=== PATIENT | female | born 1965 | race Caucasian/White ===

== ENCOUNTER 2024-08-07 14:07 | Emergency (ER) | payer OTHER ==
[~2024-08-07] VITALS: Ht 170.2 cm; Wt 117.0 kg
[2024-08-07 14:29] VITALS: BP_SYST 177; PULSE 90; RESP 18; TEMP 97.9; O2SAT 94
[2024-08-07] MEDS: IBUPROFEN 800 MG TABLET PO ONE (15:28)
[2024-08-07] MEDS: HYDROcodone/ACETAMIN 10-325 MG TAB PO ONE (15:29)
[2024-08-07] MEDS ORDERED: IBUP-1969 PO (17:46)
[2024-08-07] MEDS ORDERED: HYDR-3927 PO (17:47)
[2024-08-07 18:15] VITALS: BP_SYST 150; PULSE 90; RESP 18; TEMP 97.9; O2SAT 94
== END 2024-08-07 18:15 | disposition home or self-care (01) ==
LOC: SED 14:07
DX: S13.4XXA Sprain of ligaments of cervical spine, initial encounter (principal); S50.12XA Contusion of left forearm, initial encounter; S63.8X1A Sprain of other part of right wrist and hand, initial encounter; R07.89 Other chest pain; V89.2XXA Person injured in unspecified motor-vehicle accident, traffic, initial encounter; Y93.89 Activity, other specified; Y92.89 Other specified places as the place of occurrence of the external cause; Y99.8 Other external cause status
CPT/HCPCS: 71045; 72125-TC; 72170-TC; 73090; 99284